=== PATIENT | male | born 1935 | race Caucasian/White ===

== ENCOUNTER 2017-04-17 07:11 | Inpatient (IN) | payer MEDICARE, OTHER ==
[~2017-04-17] VITALS: Ht 180.3 cm; Wt 89.2 kg
[2017-04-17] VITALS (12 sets, daily range): BP systolic 127–151; BP diastolic 83–93; PULSE 92–110; RESP 18–25; TEMP 98.3–98.7; O2SAT 96–99
[2017-04-17] MEDS ORDERED: METOPROLOL TARTRATE 5 MG/5 ML VIAL IV PUSH ONE (07:45)
[2017-04-17] MEDS ORDERED: FAMOTIDINE 20 MG/2 ML VIAL IV PUSH SCH (07:45)
[2017-04-17 07:55] LABS: BASOPHIL % 0.4 % (0.0-2.0); EOSINOPHIL % 0.3 % (0.0-4.0); HEMATOCRIT 38.7 % (39.0-51.0); HEMOGLOBIN 13.3 GM/DL (13.0-17.0); LYMPH % 10.6 % (9.0-44.0); LYMPHOCYTE # 1.2 TH/MM3 (1.0-4.8); MEAN CELL VOLUME 97.1 FL (80.0-100.0); MEAN CORPUSCULAR HEMOGLOBIN 33.3 PG (27.0-34.0); MEAN CORPUSCULAR HGB CONC 34.3 % (32.0-36.0); MEAN PLATELET VOLUME 9.3 FL (7.0-11.0); MONO % 2.6 % (0.0-8.0); MONOCYTE # 0.3 TH/MM3 (0-0.9); NEUT % 86.1 % (16.0-70.0); PLATELET COUNT 191 TH/MM3 (150-450); RED BLOOD COUNT 3.99 MIL/MM3 (4.50-5.90); RED CELL DISTRIBUTION WIDTH 11.9 % (11.6-17.2); WHITE BLOOD COUNT 11.6 TH/MM3 (4.0-11.0)
[2017-04-17] MEDS ORDERED: HEPARIN-D5W 25,000 U/250 ML 250 ML IV PRN (08:00)
[2017-04-17] MEDS ORDERED: HEPARIN SODIUM - IV 10,000 UNITS/10 ML VIAL IV PUSH ONE (08:00)
[2017-04-17] MEDS ORDERED: METF500T PO (08:02)
[2017-04-17] MEDS ORDERED: TRAZ100T10 PO (08:02)
[2017-04-17] MEDS ORDERED: PRAV40TA2 PO (08:02)
[2017-04-17] MEDS ORDERED: RANE1000 PO (08:02)
[2017-04-17] MEDS ORDERED: PRAS10TA PO (08:02)
[2017-04-17] MEDS ORDERED: VITA500T4 PO (08:02)
[2017-04-17] MEDS ORDERED: MAGN500T2 PO (08:02)
[2017-04-17] MEDS ORDERED: METO1TAB9 PO (08:02)
[2017-04-17] MEDS ORDERED: NITR1SUB3 SL (08:02)
[2017-04-17] MEDS ORDERED: PANT40TA3 PO (08:02)
[2017-04-17] MEDS ORDERED: ESOM1CAP16 PO (08:02)
[2017-04-17] MEDS ORDERED: IRON 65MG PO (08:02)
[2017-04-17] MEDS ORDERED: OLME1TAB13 PO (08:02)
[2017-04-17] MEDS ORDERED: ISOS30TA3 PO (08:02)
[2017-04-17] MEDS ORDERED: ZINC50TA2 PO (08:02)
[2017-04-17] MEDS ORDERED: ONGL5TAB PO (08:02)
[2017-04-17] MEDS ORDERED: GLIM4TAB PO (08:02)
[2017-04-17 08:03] LABS: ALBUMIN 4.1 GM/DL (3.4-5.0); DIRECT BILIRUBIN ADULT 0.1 MG/DL (0.0-0.2); INDIRECT BILIRUBIN 0.4 MG/DL (0.0-0.8); TOTAL BILIRUBIN ADULT 0.5 MG/DL (0.2-1.0); TOTAL PROTEIN 8.7 GM/DL (6.4-8.2)
[2017-04-17 08:10] LABS: BICARBONATE 19.9 MEQ/L (21.0-32.0); BLOOD UREA NITROGEN 21 MG/DL (7-18); CALCIUM 9.4 MG/DL (8.5-10.1); CHLORIDE 98 MEQ/L (98-107); CREATININE 1.61 MG/DL (0.60-1.30); GLOMERULAR FILTRATION RATE 41 ML/MIN (>89); GLUCOSE,RANDOM 258 MG/DL (74-106); SODIUM (NA) 130 MEQ/L (136-145); TROPONIN I 0.58 NG/ML (0.02-0.05)
--- NOTE | 2017-04-17 08:11 | RADRPT ---
EXAM DATE/TIME: 04/17/2017 07:30 [place] COMPARISON: No previous studies available for comparison. INDICATIONS : Chest pain. MEDICAL HISTORY : None. SURGICAL HISTORY : CABG. Cardiac stent. ENCOUNTER: Initial ACUITY: 1 day PAIN SCORE: 9/10 LOCATION: Bilateral chest FINDINGS: The heart is enlarged. The patient is post median sternotomy. There is diffuse interstitial prominenc e. There are minimal basilar effusions. The exam would suggest congestive failure. The osseous structures are intact. CONCLUSION: 1. Probable CHF. Elder Nobles MD on April 17, 2017 at 8:06 Board Certified Radiologist. This report was verified electronically.
[2017-04-17] MEDS ORDERED: NITROGLYCERIN 2% OINT 1 GM PACKET TOPICAL ONE (08:15)
--- NOTE | 2017-04-17 08:27 | PD ---
HPI Chief Complaint: Chest Pain Time Seen by Provider: 08:12 Travel History International Travel<30 days: No Contact w/Intl Traveler<30days: No Traveled to known affect area: No History of Present Illness HPI 81-year-old male came to the emergency room with history of left-sided chest pain that started 5 hours prior to arrival. Patient says that he gets this kind of pain on and off but this time it has lasted much longer than its usual. He has significant history of coronary artery disease. He had a bypass followed by 3 stents in past 5 years. He was also told by his unit support representative that there was one vessel that was blocked that could not be opened. Patient is on medications that he has been taking. They're from [place] and they' re here visiting. No history of nausea vomiting. Patient was tachycardic upon arrival. No aggravating or relieving factors identified. The patient was brought in by EMS. He looks uncomfortable. PFSH Past Medical History Narrative Medical List of his past medical, surgical, social and family history is reviewed from the nursing note. Hx Anticoagulant Therapy: Yes (EFFIANT) Anemia: Yes Cardiac Catheterization: Yes Cardiovascular Problems: Yes (CABG AND STENTS ) High Cholesterol: Yes Chest Pain: Yes Coronary Artery Disease: Yes Diabetes: Yes Patient Takes Glucophage: Yes GERD: Yes Hypertension: Yes Tetanus Vaccination: < 5 Years Influenza Vaccination: Yes ?: Not Past Surgical History Coronary Artery Bypass Graft: Yes Social History Alcohol Use: Yes (WEEKLY) Tobacco Use: Yes Substance Use: No Allergies-Medications (Allergen,Severity, Reaction): Coded Allergies: No Known Allergies (Unverified , 04/17/17) Comments No known drug allergies. Reported Meds & Prescriptions Reported Meds & Active Scripts Active Reported Nitroglycerin SL (Nitroglycerin) 0.4 Mg Subl 0.4 Mg SL DIRECTED PRN ONE TABLET UNDER THE TONGUE NEEDED FOR CHEST PAIN, MAY REPEAT EVERY FIVE MINUTES FOR A TOTAL OF 3 DOSES OR CALL 911 IF NO RELIEF Glimepiride 4 Mg Tab 4 Mg PO DAILY Take with breakfast or first main meal Effient (Prasugrel) 10 Mg Tab 10 Mg PO DAILY Ranexa ER 12 HR (Ranolazine) 1,000 Mg Tab 1,000 Mg PO BID Vitamin B-12 (Cyanocobalamin) 500 Mcg Tab 500 Mcg PO DAILY [Iron 65MG] 1 Tab PO DAILY Esomeprazole DR 40 Mg Capdr 40 Mg PO DAILY Pravastatin 40 Mg Tab 40 Mg PO DAILY Pantoprazole (Pantoprazole Sodium) 40 Mg Tab 40 Mg PO DAILY Olmesartan 40 Mg Tab 40 Mg PO DAILY Isosorbide Mononitrate ER (Isosorbide Mononitrate) 30 Mg Obie 30 Mg PO DAILY Metoprolol Succinate ER 24 HR (Metoprolol Succinate) 50 Mg Tab 50 Mg PO DAILY Metformin (Metformin HCl) 500 Mg Tab 500 Mg PO TIDPC Trazodone (Trazodone HCl) 100 Mg Tablet 100 Mg PO HS Onglyza (Saxagliptin) 5 Mg Tab 5 Mg PO DAILY Zinc Gluconate 50 Mg Tab 50 Mg PO DAILY Magnesium Oxide 500 Mg Tab 500 Mg PO DIRECTED Narrative Medication List of his home medications reviewed from the nursing note. Review of Systems Except as stated in HPI: all other systems reviewed are Neg Cardiovascular: Positive: Chest Pain or Discomfort Physical Exam Narrative GENERAL: Awake, alert, elderly, moderate distress SKIN: Focused skin assessment warm/dry. HEAD: Atraumatic. Normocephalic. EYES: Pupils equal and round. No scleral icterus. No injection or drainage. ENT: No nasal bleeding or discharge. Mucous membranes pink and moist. NECK: Trachea midline. No JVD. CARDIOVASCULAR: Regular rate and rhythm. No murmur appreciated. RESPIRATORY: No accessory muscle use. Clear to auscultation. Breath sounds equal bilaterally. GASTROINTESTINAL: Abdomen soft, non-tender, nondistended. Hepatic and splenic margins not palpable. MUSCULOSKELETAL: No obvious deformities. No clubbing. No cyanosis. No edema. NEUROLOGICAL: Awake and alert. No obvious cranial nerve deficits. Motor grossly within normal limits. Normal speech. PSYCHIATRIC: Appropriate mood and affect; insight and judgment normal. Data Data Last Documented VS Vital Signs Date Time Temp Pulse Resp B/P (MAP) Pulse Ox O2 Delivery O2 Flow Rate FiO2 04/17/17 08:03 92 18 151/89 (109) 98 Nasal Cannula 3.00 04/17/17 07:23 98.7 Orders Orders Electrocardiogram (04/17/17 07:13) Complete Blood Count With Diff (04/17/17 07:13) Basic Metabolic Panel (Bmp) (04/17/17 07:13) Ckmb (Isoenzyme) Profile (04/17/17 07:13) Troponin I (04/17/17 07:13) Chest, Single Ap (04/17/17 07:13) Iv Access Insert/Monitor (04/17/17 07:13) Ecg Monitoring (04/17/17 07:13) Oxygen Administration (04/17/17 07:13) Oximetry (04/17/17 07:13) Metoprolol Tartrate Inj (Lopressor Inj) (04/17/17 07:45) Famotidine Inj (Pepcid Inj) (04/17/17 07:45) Lipase (04/17/17 07:36) Hepatic Functional Panel (04/17/17 07:36) Heparin Inj (Heparin Inj) (04/17/17 08:00) Heparin Inj (Heparin Inj) (04/17/17 14:00) Heparin Inj (Heparin Inj) (04/17/17 14:00) Heparin-D5w 25,000 U/250 Ml (Heparin-D5w (04/17/17 08:00) Act Partial Throm Time (Ptt) (04/17/17 07:51) Prothrombin Time / Inr (Pt) (04/17/17 07:51) Cbc No Diff, Includes Plts (04/20/17 06:00) Act Partial Throm Time (Ptt) (04/17/17 14:51) Occult Blood (Hemoccult) Stool (04/17/17 07:51) Nitroglycerin 2% Oint (Nitroglycerin 2% (04/17/17 08:15) CKMB (04/17/17 07:30) CKMB% (04/17/17 07:30) Admit Order (Ed Use Only) (04/17/17 08:42) Labs Laboratory Tests Test 04/17/17 07:30 White Blood Count 11.6 TH/MM3 Red Blood Count 3.99 MIL/MM3 Hemoglobin 13.3 GM/DL Hematocrit 38.7 % Mean Corpuscular Volume 97.1 FL Mean Corpuscular Hemoglobin 33.3 PG Mean Corpuscular Hemoglobin Concent 34.3 % Red Cell Distribution Width 11.9 % Platelet Count 191 TH/MM3 Mean Platelet Volume 9.3 FL Neutrophils (%) (Auto) 86.1 % Lymphocytes (%) (Auto) 10.6 % Monocytes (%) (Auto) 2.6 % Eosinophils (%) (Auto) 0.3 % Basophils (%) (Auto) 0.4 % Neutrophils # (Auto) 10.0 TH/MM3 Lymphocytes # (Auto) 1.2 TH/MM3 Monocytes # (Auto) 0.3 TH/MM3 Eosinophils # (Auto) 0.0 TH/MM3 Basophils # (Auto) 0.0 TH/MM3 CBC Comment DIFF FINAL Differential Comment Prothrombin Time 11.4 SEC Prothromb Time International Ratio 1.1 RATIO Activated Partial Thromboplast Time 26.7 SEC Blood Urea Nitrogen 21 MG/DL Creatinine 1.61 MG/DL Random Glucose 258 MG/DL Calcium Level 9.4 MG/DL Sodium Level 130 MEQ/L Potassium Level 5.4 MEQ/L Chloride Level 98 MEQ/L Carbon Dioxide Level 19.9 MEQ/L Anion Gap 12 MEQ/L Estimat Glomerular Filtration Rate 41 ML/MIN Total Bilirubin 0.5 MG/DL Direct Bilirubin 0.1 MG/DL Indirect Bilirubin 0.4 MG/DL Aspartate Amino Transf (AST/SGOT) 25 U/L Alanine Aminotransferase (ALT/SGPT) 27 U/L Alkaline Phosphatase 132 U/L Total Creatine Kinase 140 U/L Creatine Kinase MB 6.6 NG/ML Troponin I 0.58 NG/ML Total Protein 8.7 GM/DL Albumin 4.1 GM/DL Lipase 115 U/L MDM Medical Decision Making Medical Screen Exam Complete: Yes Emergency Medical Condition: Yes Medical Record Reviewed: Yes Interpretation(s) 12-lead EKG was reviewed by me. Normal sinus rhythm, normal axis, tachycardia, left bundle branch block. Heart rate of 104 beats per minute Differential Diagnosis Non-STEMI, ACS Narrative Course 8:36 AM case was discussed with Dr. Montemayor after patient arrived because of his symptoms and the left bundle branch block. There is no old EKG to compare with the current EKG. As per him he wanted to wait for the labs and then be called back. The blood test results of back and patient's troponin is slightly elevated. He is BUN and creatinine is elevated as well. Meanwhile patient was started on medications including Nitropaste and heparin bolus and drip. Dr. Montemayor was called again and conveyed all the troponin value. He wanted the patient to be medically admitted and troponin every 2 hours. He would take him to the catheter lab at sometime this afternoon as per him. Awaiting for the admitting team to call back. Critical Care Narrative Aggregate critical care time was 30 minutes. Time to perform other separately billable procedures was not included in the critical care time. My time did not include minutes spent treating any other patients simultaneously or on activities that did not directly contribute to the patient's treatment. The services I provided to this patient were to treat and/or prevent clinically significant deterioration that could result in: Non-STEMI, heparin bolus and drip I provided critical care services requiring my management, as noted below: Chart data review, documentation time, medication orders and management, vital sign assessments/reviewing monitor data, ordering and reviewing lab tests, ordering and interpreting/reviewing x-rays and diagnostic studies, care of the patient and discussion of the patient with the admitting physicians. Procedures EKG Prior to Arrival: Yes Physician Communication Physician Communication Dr. Montemayor Diagnosis Primary Impression: Non-STEMI (non-ST elevated myocardial infarction) Admitting Information Admitting Physician Requests: Lise Doshi MD Apr 17, 2017 08:27
[2017-04-17 08:37] LABS: INTERNATIONAL NORMALIZED RATIO 1.1 RATIO; PROTHROMBIN TIME - PATIENT 11.4 SEC (9.8-11.6)
[2017-04-17] MEDS ORDERED: NALOXONE HCL 0.4 MG/ML AMP IV PUSH PRN (09:15)
[2017-04-17] MEDS ORDERED: SODIUM CHLORIDE 0.9% FLUSH 10 ML FLUSH IV FLUSH PRN ×2 (09:15→13:30)
[2017-04-17] MEDS ORDERED: HEPARIN-NS/PF FLUSH BAG 2,000 ML IV FLUSH ONE (12:17)
[2017-04-17] MEDS ORDERED: MIDAZOLAM HCL 2 MG/2 ML VIAL ONE (12:35)
[2017-04-17] MEDS ORDERED: HEPARIN SODIUM - IV 10,000 UNITS/10 ML VIAL ONE (12:51)
[2017-04-17] MEDS ORDERED: CLOPIDOGREL 300 MG TAB ONE (13:20)
[2017-04-17] MEDS ORDERED: TIROFIBAN INFUSION INJ 250 ML IV ONE (13:20)
[2017-04-17] MEDS ORDERED: PRASUGREL 10 MG TAB ONE (13:28)
[2017-04-17] MEDS ORDERED: TIROFIBAN INFUSION INJ 250 ML IV SCH (13:28)
[2017-04-17] MEDS ORDERED: MISC INFORMATION XX ONE (13:30)
[2017-04-17] MEDS ORDERED: PRASUGREL 10 MG TAB PO ONE (13:30)
[2017-04-17] MEDS ORDERED: HEPARIN SODIUM - IV 10,000 UNITS/10 ML VIAL IV PUSH PRN ×2 (14:00)
[2017-04-17] MEDS ORDERED: DILTIAZEM HCL 25 MG/5 ML VIAL ONE (14:40)
[2017-04-17] MEDS ORDERED: DILTIAZEM HCL 25 MG/5 ML (Bolus) IV PUSH PRN (14:45)
[2017-04-17] MEDS: DILTIAZEM 125 MG/NS 100 ML IV PRN ×2 (15:00)
[2017-04-17] MEDS ORDERED: IOHEXOL 350 MG/ML 100 ML BTL (for Cath Lab) OTHER ONE (15:12)
[2017-04-17] MEDS ORDERED: DEXTROSE 50% IN WATER 50 ML VIAL(D50) IV PUSH PRN (16:45)
[2017-04-17] MEDS ORDERED: GLUCAGON 1 MG/ML VIAL OTHER PRN (16:45)
--- NOTE | 2017-04-17 16:46 | HHI.HP ---
HPI Service [facility] Primary Care Physician Non-Staff Admission Diagnosis NSTEMI Diagnoses: Travel History International Travel<30 Days: No Contact w/Intl Traveler <30 Da: No Traveled to Known Affected Are: No History of Present Illness History the patient, ER physician communication, interview of medical records. Patient reported that last night, all through the night, he was having chest pain. Midsternal. No radiation. Denies any association to me. However patient does looks to be a little bit short of breath at the time of my exam. He states that he is not short of breath and that he was just trying to get sympathy. He reports that there was some pain to his left shoulder as well although he's not sure whether this is necessarily radiation. Denies any recent bleeding. Next and denies fevers/sinus symptoms. Denies any nausea or vomiting or diarrhea. Patient states because of these chest pains, he took a total of 3 nitroglycerin throughout the night. By 6 AM when he woke up, since the pain was not going away, he called 911 to come. He reports he has history of CAD with prior CABG and stenting. He was told by his multiskill operator that he has some areas that were not amenable due to the anatomy being too close to the heart. He reports he has had a few months history of ongoing angina which usually is relieved by nitroglycerin. Only last night, it was not relieving. In the emergency room, patient's EKGs revealed LBBB. There was no prior EKGs to review since [place] Patient reports [place] traveled here [place] by [place] around and of January. No recent prolonged travels since then. Patient was then taken to cardiac catheter by Dr. Montemayor multiskill operator. Per patient and from the chart, patient had 1 stent placed. Currently, patient is on Cardizem drip and tirofiban drip. Blood pressure is 130s over 70s. Review of Systems Except as stated in HPI: all other systems reviewed are Neg Past Family Social History Past Medical History Hypertension Diabetes Hyperlipidemia CADstatus post cardiac stents and CABG PAD GERD Past Surgical History CABG Cataract surgery Coronary angiogram and stenting Allergies: Coded Allergies: No Known Allergies (Unverified , 04/17/17) Family History He was an orphan However his biological son has significant cardiac defects at . Bundle- branch block, some wall motion abnormalities, valvular defects according to the . Social History Smokes pipes. Drinks alcohol only socially. Denies any drug abuse. Physical Exam Vital Signs Vital Signs Date Time Temp Pulse Resp B/P (MAP) Pulse Ox O2 Delivery O2 Flow Rate FiO2 04/17/17 15:00 110 146/77 04/17/17 13:51 91 Room Air 04/17/17 11:59 04/17/17 11:45 110 18 150/93 (112) 98 Nasal Cannula 3.00 04/17/17 11:00 108 18 149/86 (107) 98 Nasal Cannula 3.00 04/17/17 08:03 92 18 151/89 (109) 98 Nasal Cannula 3.00 04/17/17 07:23 96 Room Air 04/17/17 07:23 98.7 104 25 144/89 (107) 96 Nasal Cannula 2.00 04/17/17 07:23 96 Room Air 04/17/17 07:23 105 25 96 Room Air 04/17/17 07:17 98.7 105 25 144/89 (107) 96 Physical Exam GENERAL: This is a well-nourished, well-developed patient, in no apparent distress. SKIN: No rashes, ecchymoses or lesions. Cool and dry. HEAD: Atraumatic. Normocephalic. No temporal or scalp tenderness. EYES:No scleral icterus. No injection or drainage. ENT: Nose without bleeding, purulent drainage or septal hematoma. . Airway patent. NECK: Trachea midline. No JVD. Supple, nontender, no meningeal signs. CARDIOVASCULAR: Regular rate and rhythm without murmurs, gallops, or rubs. RESPIRATORY: Clear to auscultation. Breath sounds equal bilaterally. No wheezes , rales, or rhonchi. GASTROINTESTINAL: Abdomen soft, non-tender, nondistended. No guarding : right groin cath site clean, no hematoma, MUSCULOSKELETAL: Extremities without clubbing, cyanosis, or edema. . No calf tenderness. Faint dorsalis pedis pulses , cold temp bilateral feet- reports chronic NEUROLOGICAL: Awake and alert. Motor and sensory grossly within normal limits. Normal speech. Laboratory Laboratory Tests Test 04/17/17 07:30 White Blood Count 11.6 Red Blood Count 3.99 Hemoglobin 13.3 Hematocrit 38.7 Mean Corpuscular Volume 97.1 Mean Corpuscular Hemoglobin 33.3 Mean Corpuscular Hemoglobin Concent 34.3 Red Cell Distribution Width 11.9 Platelet Count 191 Mean Platelet Volume 9.3 Neutrophils (%) (Auto) 86.1 Lymphocytes (%) (Auto) 10.6 Monocytes (%) (Auto) 2.6 Eosinophils (%) (Auto) 0.3 Basophils (%) (Auto) 0.4 Neutrophils # (Auto) 10.0 Lymphocytes # (Auto) 1.2 Monocytes # (Auto) 0.3 Eosinophils # (Auto) 0.0 Basophils # (Auto) 0.0 CBC Comment DIFF FINAL Differential Comment Prothrombin Time 11.4 Prothromb Time International Ratio 1.1 Activated Partial Thromboplast Time 26.7 Blood Urea Nitrogen 21 Creatinine 1.61 Random Glucose 258 Calcium Level 9.4 Sodium Level 130 Potassium Level 5.4 Chloride Level 98 Carbon Dioxide Level 19.9 Anion Gap 12 Estimat Glomerular Filtration Rate 41 Total Bilirubin 0.5 Direct Bilirubin 0.1 Indirect Bilirubin 0.4 Aspartate Amino Transf (AST/SGOT) 25 Alanine Aminotransferase (ALT/SGPT) 27 Alkaline Phosphatase 132 Total Creatine Kinase 140 Creatine Kinase MB 6.6 Troponin I 0.58 B-Type Natriuretic Peptide 405 Total Protein 8.7 Albumin 4.1 Lipase 115 Result Diagram: 04/17/1772904/17/17729 Imaging Last 48 hours Impressions Chest X-Ray 04/17/17712 Signed Impressions: Service Date/Time: March 07:30 - CONCLUSION: 1. Probable CHF. Elder Nobles MD Caprini VTE Risk Assessment Caprini VTE Risk Assessment: Mod/High Risk (score >= 2) Caprini Risk Assessment Model Point Value = 1 Point Value = 2 Point Value = 3 Point Value = 5 Age 41-60 Minor surgery BMI > 25 kg/m2 Swollen legs Varicose veins or History of unexplained or recurrent spontaneous Oral contraceptives or hormone replacement Sepsis (< 1 month) Serious lung disease, including pneumonia (< 1 month) Abnormal pulmonary function Acute myocardial infarction Congestive heart failure (< 1 month) History of inflammatory bowel disease Medical patient at bed rest Age 61-74 Arthroscopic surgery Major open surgery (> 45 min) Laparoscopic surgery (> 45 min) Malignancy Confined to bed (> 72 hours) Immobilizing plaster cast Central venous access Age >= 75 History of VTE Family history of VTE Factor V Leiden Prothrombin [id number] Lupus anticoagulant Anticardiolipin antibodies Elevated serum homocysteine Heparin-induced thrombocytopenia Other congenital or acquired thrombophilia Stroke (< 1 month) Elective arthroplasty Hip, pelvis, or leg fracture Acute spinal cord injury (< 1 month) Prophylaxis Regimen Total Risk Factor Score Risk Level Prophylaxis Regimen 0-1 Low Early ambulation 2 Moderate Order ONE of the following: *Sequential Compression Device (SCD) *Heparin 5000 units SQ BID 3-4 Higher Order ONE of the following medications: *Heparin 5000 units SQ TID *Enoxaparin/Lovenox 40 mg SQ daily (WT < 150 kg, CrCl > 30 mL/min) *Enoxaparin/Lovenox 30 mg SQ daily (WT < 150 kg, CrCl > 10-29 mL/min) *Enoxaparin/Lovenox 30 mg SQ BID (WT < 150 kg, CrCl > 30 mL/min) AND/OR *Sequential Compression Device (SCD) 5 or more Highest Order ONE of the following medications: *Heparin 5000 units SQ TID (Preferred with Epidurals) *Enoxaparin/Lovenox 40 mg SQ daily (WT < 150 kg, CrCl > 30 mL/min) *Enoxaparin/Lovenox 30 mg SQ daily (WT < 150 kg, CrCl > 10-29 mL/min) *Enoxaparin/Lovenox 30 mg SQ BID (WT < 150 kg, CrCl > 30 mL/min) AND *Sequential Compression Device (SCD) Assessment and Plan Assessment and Plan Impression: Non-ST elevation RI Hypertension Diabetes Hyperlipidemia CADstatus post cardiac stents and CABG PAD GERD Plan: Patient was started on heparin drip in ER. Nitroglycerin when necessary. Patient was immediately taken to coronary angiogram by multiskill operator Dr. Montemayor. He did have coronary intervention with one stent. Official report to follow. Continue Cardizem drip. Continue antiplatelet therapy per multiskill operator. Start patient on diet. Fingersticks monitoring Hold metformin. Resume rest of his home meds. Beta blockers/statin/effient/ nitrates Echocardiogram in a.m. Chest x-ray showing some pulmonary congestion. However patient denies any prior history of CHF. BNP is slightly elevated. We'll follow echo. Watch for fluid overload. DVT prophylaxis with Lovenox. Discussed Condition With patient, ER Physician Certification 2 Midnight Certification Type: Admission for Inpatient Services Order for Inpatient Services The services are ordered in accordance with Medicare regulations or non- Medicare payer requirements, as applicable. In the case of services not specified as inpatient-only, they are appropriately provided as inpatient services in accordance with the 2-midnight benchmark. Estimated LOS (days): 2 days is the estimated time the patient will need to remain in the hospital, assuming treatment plan goals are met and no additional complications. Post-Hospital Plan: Home Brittney Davis MD Apr 17, 2017 16:46
[2017-04-17] MEDS ORDERED: PILL SPLITTER OTHER PRN (17:15)
[2017-04-17] MEDS: INSULIN ASPART SUPPLEMENTAL SCALE SQ SCH ×2 (17:59→21:11)
--- NOTE | 2017-04-17 19:08 | ECHRPT ---
Indication: Heart failure, unspecified CONCLUSIONS The transthoracic study is normal by two-dimensional, color flow imaging and Doppler interrogation. The left ventricular systolic function is severely reduced with an estimated ejection fraction in th e range of 30-35%. Wall thickness is normal. Normal left ventricular size. The left atrial size is [id number] dilated. The aortic root and proximal ascending aorta are not well visualized. Mild mitral valve regurgitation. Calcification of the anterior mitral valve leaflet. BP: / HR: Rhythm: MEASUREMENTS (Male / Female) Normal Values Technical Quality:Fair 2D ECHO LV Diastolic Diameter PLAX 5.9 cm 4.2 - 5.9 / 3.9 - 5.3 cm LV Systolic Diameter PLAX 5.1 cm IVS Diastolic Thickness 0.9 cm 0.6 - 1.0 / 0.6 - 0.9 cm LVPW Diastolic Thickness 1.2 cm 0.6 - 1.0 / 0.6 - 0.9 cm LV Relative Wall Thickness 0.3 RV Internal Dim ED PLAX 2.3 cm M-MODE Aortic Root Diameter MM 3.0 cm LA Systolic Diameter MM 5.8 cm LA Ao Ratio MM 1.9 AV Cusp Separation MM 1.2 cm DOPPLER MV Peak Velocity 116.0 cm/s MV Peak Gradient 5.4 mmHg MV Mean Velocity 81.4 cm/s MV Mean Gradient 3.0 mmHg Mitral E Point Velocity 111.0 cm/s Mitral A Point Velocity 123.0 cm/s Mitral E to A Ratio 0.9 FINDINGS LEFT VENTRICLE The left ventricular systolic function is severely reduced with an estimated ejection fraction in th e range of 30-35%. Wall thickness is normal. Normal left ventricular size. RIGHT VENTRICLE Normal right ventricular size and systolic function. LEFT ATRIUM The left atrial size is [id number] dilated. RIGHT ATRIUM The right atrial size is normal. ATRIAL SEPTUM Normal atrial septal thickness without atrial level shunting by limited color doppler interrogation. AORTA The aortic root and proximal ascending aorta are not well visualized. MITRAL VALVE Structurally normal mitral valve. Mild mitral valve regurgitation. Calcification of the anterior mitral valve leaflet. AORTIC VALVE Trileaflet aortic valve. No aortic valve stenosis or regurgitation. TRICUSPID VALVE Structurally normal tricuspid valve. No tricuspid valve stenosis or regurgitation. PULMONARY VALVE No pulmonary valve regurgitation or stenosis. VESSELS The inferior vena cava is normal in size. PERICARDIUM No pericardial effusion. Miguel Montemayor MD, FACC, [facility] [place] (Electronically Signed) Final Date:17 April 2017 19:07
--- NOTE | 2017-04-17 19:40 | EKG ---
Date Performed: 04/17/2017 Time Performed: 07:21:37 PTAGE: 81 years EKG: SINUS TACHYCARDIA MARKED LEFT AXIS DEVIATION LEFT BUNDLE BRANCH BLOCK ABNORMAL ECG NO PREVIOUS TRACING DOCTOR: Tammi Henson Interpretating Date/Time 04/17/2017 19:38:48
[2017-04-17] MEDS ORDERED: ONDANSETRON HCL 4 MG/2 ML VIAL IV PUSH PRN (19:45)
[2017-04-17] MEDS: SODIUM CHLORIDE 0.9% FLUSH 10 ML FLUSH IV FLUSH SCH (21:00)
[2017-04-17] MEDS ORDERED: RANOLAZINE 1000 MG PO SCH (21:00)
[2017-04-17] MEDS ORDERED: SODIUM CHLORIDE 0.9% FLUSH 10 ML FLUSH IV FLUSH SCH (21:00)
[2017-04-17] MEDS ORDERED: ATORVASTATIN 10 MG TAB PO SCH (21:00)
[2017-04-17] MEDS ORDERED: NON-FORMULARY DRUG (Trazodone 100 MG) PO SCH (21:00)
[2017-04-17] MEDS ORDERED: traZODone HCL 100 MG TAB PO SCH (21:00)
[2017-04-17] MEDS: RANOLAZINE 500 MG EXTENDED RELEASE TAB PO SCH (21:10)
[2017-04-17] MEDS: CARVEDILOL 3.125 MG TAB PO SCH (21:11)
--- NOTE | 2017-04-17 21:34 | MB ---
cc: ALMA KELLER M.D. DATE OF CONSULTATION 04/17/17 Hossein is a very pleasant 81-year-old gentleman, history of coronary artery bypass graft procedure in 1997. He visiting here from [place]. He began developing left-sided chest pain five hours prior to arrival. At the time I evaluated him he was complaining of severe chest pain. He states he was told by the [employer] consultant that he had a vessel that "could not be opened". Otherwise, he denies any fevers, chills, cough, GI or bleeding, orthopnea, syncope or dizziness. PAST MEDICAL HISTORY Per history of present illness. 1. Anemia, 2. Hyperlipidemia, 3. Diabetes. 4. Gastroesophageal reflux disease 5. Hypertension. SOCIAL HISTORY He drinks alcohol. He does smoke tobacco. ALLERGIES None. MEDICATIONS Prior to admission 1. 2. Effient 10 mg daily 3. Ranexa 1000 b.i.d. 4. Vitamin B12 5. Omeprazole 6. Pravastatin 40 daily. 7. Pantoprazole 40 daily, 8. Omasartin 40 mg daily. 9. Isosorbide mononitrate 30 mg daily. 10. Metoprolol extended release 50 mg daily. 11. Metformin 500 t.i.d. 12. Trazodone 13. Zinc gluconate 14. Magnesium oxide 15. 5 mg daily In hospital 1. Aspirin 81 mg a day. 2. Imdur 30 mg daily, 3. Metoprolol XL 50 daily. 4. Pantoprazole 40 daily. 5. Losartan 50 mg daily 6. Onglyza 7. Carvedilol 3.25 b.i.d. 8. Atorvastatin 10 mg at bedtime 9. Ranexa 1000 mg b.i.d. 10. Trazodone 100 mg at bedtime. PHYSICAL EXAMINATION VITAL SIGNS: Blood pressure on admission 144/89, pulse 105, temperature 98.7, respiratory rate 25. GENERAL: He is alert and oriented times three in mild to moderate distress NECK: Supple. No JVD, no bruit CARDIOVASCULAR: S1, S2. No murmurs, rubs or gallops. LUNGS: Clear to auscultation bilaterally ABDOMEN: Soft, nontender, nondistended with positive bowel sounds. EXTREMITIES: No lower extremity edema. LABORATORY DATA White count 11.6, hemoglobin 13.3, hematocrit 39.7, platelet count 191. Sodium 130, potassium 5.4, chloride 98, bicarb 19.9, BUN 21 creatinine 1.61, glucose 258, troponin is 0.58. BNP is 405, INR 1.1. CARDIOLOGY STUDIES EKG - I cannot get to it on the computer, but it is reported to show a left bundle-branch block by the ER physician, Dr. Pineda and Dr. Mendoza. IMAGING STUDIES Chest x-ray shows probable CHF. DIAGNOSES 1. Non STEMI 2. Decompensated congestive heart failure 3. Left bundle-branch block 4. Diabetes mellitus. 5. Coronary artery disease. 6. Status post coronary artery bypass graft 7. Chronic renal insufficiency. 8. Hyperglycemia 9. Hyponatremia. 10. Hyperkalemia 11. Elevated white count. DISCUSSION At this point in time, I do think left heart catheterization is urgently indicated. Plan is for urgent left heart catheterization. Further recommendations pending results of the coronary anatomy and revascularization options. MD JASON Hollingsworth/ /5:21 PM /9:04 PM
[2017-04-17 21:47] LABS: TROPONIN I 36.7 NG/ML (0.02-0.05)
[2017-04-18] VITALS (15 sets, daily range): BP systolic 93–120; BP diastolic 60–75; PULSE 77–96; RESP 19–20; TEMP 97.5–98.2; O2SAT 96–97
[2017-04-18 03:38] LABS: AUTOMATED NEUTROPHIL # 10.6 TH/MM3 (1.8-7.7); BASOPHIL % 0.3 % (0.0-2.0); HEMATOCRIT 36.6 % (39.0-51.0); HEMOGLOBIN 12.3 GM/DL (13.0-17.0); LYMPH % 8.7 % (9.0-44.0); LYMPHOCYTE # 1.1 TH/MM3 (1.0-4.8); MEAN CELL VOLUME 98.1 FL (80.0-100.0); MEAN CORPUSCULAR HEMOGLOBIN 32.9 PG (27.0-34.0); MEAN CORPUSCULAR HGB CONC 33.5 % (32.0-36.0); MEAN PLATELET VOLUME 9.3 FL (7.0-11.0); MONO % 8.8 % (0.0-8.0); MONOCYTE # 1.1 TH/MM3 (0-0.9); NEUT % 82.2 % (16.0-70.0); PLATELET COUNT 199 TH/MM3 (150-450); RED BLOOD COUNT 3.73 MIL/MM3 (4.50-5.90); RED CELL DISTRIBUTION WIDTH 12.1 % (11.6-17.2); WHITE BLOOD COUNT 12.9 TH/MM3 (4.0-11.0)
[2017-04-18 03:48] LABS: BICARBONATE 18.6 MEQ/L (21.0-32.0); BLOOD UREA NITROGEN 25 MG/DL (7-18); CALCIUM 8.8 MG/DL (8.5-10.1); CHLORIDE 102 MEQ/L (98-107); CHOLESTEROL 159 MG/DL (120-200); CREATININE 1.57 MG/DL (0.60-1.30); GLOMERULAR FILTRATION RATE 43 ML/MIN (>89); GLUCOSE,RANDOM 214 MG/DL (74-106); SODIUM (NA) 133 MEQ/L (136-145); TRIGLYCERIDES 116 MG/DL (42-150)
[2017-04-18 04:01] LABS: CHOLESTEROL/ HDL RATIO 2.74 RATIO; LDL CHOLESTEROL 78 MG/DL (0-99)
[2017-04-18 05:05] LABS: TROPONIN I GREATER THAN 40.00 NG/ML (0.02-0.05)
[2017-04-18] MEDS: DILTIAZEM 125 MG/NS 100 ML IV PRN ×2 (07:28)
[2017-04-18] MEDS ORDERED: PRASUGREL 10 MG TAB PO SCH (09:00)
[2017-04-18] MEDS ORDERED: PANTOPRAZOLE SOD 40 MG DELAYED RELEASE TAB PO SCH (09:00)
[2017-04-18] MEDS ORDERED: PRAVASTATIN SOD 40 MG TAB PO SCH (09:00)
[2017-04-18] MEDS ORDERED: OLMESARTAN 40 MG PO SCH (09:00)
[2017-04-18] MEDS ORDERED: SAXAGLIPTIN 5 MG PO SCH ×2 (09:00)
[2017-04-18] MEDS ORDERED: LOSARTAN 50 MG TAB PO SCH (09:00)
[2017-04-18] MEDS ORDERED: CYANOCOBALAMIN 1,000 MCG TAB PO SCH (09:00)
[2017-04-18] MEDS ORDERED: METOPROLOL SUCCINATE 50 MG EXTENDED RELEASE TAB PO SCH (09:00)
[2017-04-18] MEDS ORDERED: ASPIRIN 81 MG CHEW TAB PO SCH (09:00)
[2017-04-18] MEDS ORDERED: ISOSORBIDE MONONITRATE 30 MG CR TAB (IMDUR) PO SCH (09:00)
[2017-04-18] MEDS ORDERED: GLIMEPIRIDE 4 MG TAB PO SCH (09:00)
[2017-04-18] MEDS: INSULIN ASPART SUPPLEMENTAL SCALE SQ SCH ×2 (09:24→12:49)
[2017-04-18] MEDS: CARVEDILOL 3.125 MG TAB PO SCH (09:24)
[2017-04-18] MEDS: SODIUM CHLORIDE 0.9% FLUSH 10 ML FLUSH IV FLUSH SCH (09:26)
[2017-04-18] MEDS: RANOLAZINE 500 MG EXTENDED RELEASE TAB PO SCH (11:39)
--- NOTE | 2017-04-18 12:01 | PD.CARD.PN ---
Subjective Subjective Remarks assymptomatic Objective Medications Current Medications Medications (Trade) Dose Ordered Sig/Yamilet Route Start Time Stop Time Status Last Admin (Pepcid Inj) 20 mg ONCE IV PUSH 04/17/17 07:45 04/17/17 07:44 (Narcan Inj) 0.4 mg UNSCH PRN IV PUSH 04/17/17 09:15 (NS Flush) 2 ml UNSCH PRN IV FLUSH 04/17/17 13:30 (NS Flush) 2 ml BID IV FLUSH 04/17/17 21:00 04/18/17 09:26 (Aspirin Chew) 162 mg DAILY PO 04/18/17 09:00 04/18/17 09:25 (Effient) 10 mg DAILY PO 04/18/17 09:00 04/18/17 09:24 (Coreg) 3.125 mg BID PO 04/17/17 21:00 04/18/17 09:24 (Lipitor) 10 mg HS PO 04/17/17 21:00 04/17/17 21:11 (Cardizem Inj) 10 mg BOLUS PRN IV PUSH 04/17/17 14:45 04/18/17 14:44 04/17/17 14:32 Diltiazem HCl 125 mg/Sodium Chloride 125 ml @ 5 mls/hr TITRATE PRN IV 04/17/17 14:45 04/18/17 07:28 (D50w (Vial) Inj) 50 ml UNSCH PRN IV PUSH 04/17/17 16:45 (Glucagon Inj) 1 mg UNSCH PRN OTHER 04/17/17 16:45 (NovoLOG SUPPLEMENTAL SCALE) 1 ACHS SLIDING SCALE SQ 04/17/17 17:00 04/18/17 09:24 (Vitamin B12) 500 mcg DAILY PO 04/18/17 09:00 04/18/17 09:25 (Amaryl) 4 mg DAILY PO 04/18/17 09:00 04/18/17 09:24 (Imdur) 30 mg DAILY PO 04/18/17 09:00 04/18/17 09:25 (Toprol Xl) 50 mg DAILY PO 04/18/17 09:00 04/18/17 09:25 (Protonix) 40 mg DAILY PO 04/18/17 09:00 04/18/17 09:24 (Pill Splitter) 1 ea UNSCH PRN OTHER 04/17/17 17:15 (Ranexa) 1,000 mg BID PO 04/17/17 21:00 04/18/17 11:39 (Desyrel) 100 mg HS PO 04/17/17 21:00 04/17/17 21:10 (Cozaar) 50 mg DAILY PO 04/18/17 09:00 04/18/17 09:25 Patient Own Medication PT OWN MED: ONGLYZ... DAILY PO 04/18/17 09:00 Future Hold (Zofran Inj) 4 mg Q6H PRN IV PUSH 04/17/17 19:45 Vital Signs / I&O Vital Signs Date Time Temp Pulse Resp B/P (MAP) Pulse Ox O2 Delivery O2 Flow Rate FiO2 04/18/17 11:42 98.2 77 19 93/60 (71) 96 04/18/17 10:00 92 04/18/17 09:00 88 04/18/17 08:00 82 04/18/17 07:30 98.0 87 20 120/75 (90) 96 04/18/17 07:28 87 120/75 04/18/17 07:00 82 04/18/17 06:06 89 04/18/17 05:00 94 04/18/17 04:00 79 04/18/17 03:00 97.6 83 95/63 (74) 97 04/18/17 03:00 87 04/18/17 01:22 85 04/18/17 00:03 97.5 96 114/70 (85) 96 04/18/17 00:00 88 04/17/17 23:00 104 04/17/17 22:00 104 04/17/17 21:00 102 04/17/17 20:00 102 04/17/17 19:00 98.3 104 127/83 (98) 99 04/17/17 19:00 103 04/17/17 18:00 104 04/17/17 17:00 108 04/17/17 15:00 110 146/77 04/17/17 13:51 91 Room Air 04/17/17 11:59 I/O 04/17/17 04/17/17 04/17/17 04/18/17 04/18/17 04/18/17 07:00 15:00 23:00 07:00 15:00 23:00 Intake Total 240 ml 240 ml 123 ml Output Total 200 ml 225 ml Balance 40 ml 15 ml 123 ml Intake Oral 240 ml 240 ml IV Total 123 ml Output Urine Total 200 ml 225 ml Physical Exam GENERAL: SKIN: Warm and dry. HEAD: Normocephalic. EYES: No scleral icterus. No injection or drainage. NECK: Supple, trachea midline. No JVD or lymphadenopathy. CARDIOVASCULAR: Regular rate and rhythm without murmurs, gallops, or rubs. RESPIRATORY: Breath sounds equal bilaterally. No accessory muscle use. GASTROINTESTINAL: Abdomen soft, non-tender, nondistended. MUSCULOSKELETAL: No cyanosis, or edema. BACK: Nontender without obvious deformity. No CVA tenderness. Laboratory Laboratory Tests Test 04/17/17 20:47 04/18/17 03:01 Activated Partial Thromboplast Time 25.2 SEC Total Creatine Kinase 1199 U/L 1365 U/L Creatine Kinase MB 155.1 NG/ML 162.4 NG/ML Creatine Kinase MB % 12.9 % 11.9 % Troponin I 36.70 NG/ML GREATER THAN 40.00 NG/ML White Blood Count 12.9 TH/MM3 Red Blood Count 3.73 MIL/MM3 Hemoglobin 12.3 GM/DL Hematocrit 36.6 % Mean Corpuscular Volume 98.1 FL Mean Corpuscular Hemoglobin 32.9 PG Mean Corpuscular Hemoglobin Concent 33.5 % Red Cell Distribution Width 12.1 % Platelet Count 199 TH/MM3 Mean Platelet Volume 9.3 FL Neutrophils (%) (Auto) 82.2 % Lymphocytes (%) (Auto) 8.7 % Monocytes (%) (Auto) 8.8 % Eosinophils (%) (Auto) 0.0 % Basophils (%) (Auto) 0.3 % Neutrophils # (Auto) 10.6 TH/MM3 Lymphocytes # (Auto) 1.1 TH/MM3 Monocytes # (Auto) 1.1 TH/MM3 Eosinophils # (Auto) 0.0 TH/MM3 Basophils # (Auto) 0.0 TH/MM3 CBC Comment DIFF FINAL Differential Comment Blood Urea Nitrogen 25 MG/DL Creatinine 1.57 MG/DL Random Glucose 214 MG/DL Calcium Level 8.8 MG/DL Sodium Level 133 MEQ/L Potassium Level 4.8 MEQ/L Chloride Level 102 MEQ/L Carbon Dioxide Level 18.6 MEQ/L Anion Gap 12 MEQ/L Estimat Glomerular Filtration Rate 43 ML/MIN Triglycerides Level 116 MG/DL Cholesterol Level 159 MG/DL LDL Cholesterol 78 MG/DL HDL Cholesterol 58.0 MG/DL Cholesterol/HDL Ratio 2.74 RATIO Assessment and Plan Problem List: (1) SVT (supraventricular tachycardia) ICD Codes: I47.1 - Supraventricular tachycardia (2) CAD (coronary artery disease) ICD Codes: I25.10 - Atherosclerotic heart disease of [place] coronary artery without angina pectoris (3) Non-STEMI (non-ST elevated myocardial infarction) ICD Codes: I21.4 - Non-ST elevation (NSTEMI) myocardial infarction Status: Acute Assessment and Plan 1.) NSTEMI - pod#1 bms lm, assymptomatic, ok to dc from cv standpoint on aspirin , effient, coreg, f/u with me in my office 04/21/17, patient instructed me to not take metformin/glucophage x 48 hours post cath; plan d/w nurse Miguel Montemayor MD Apr 18, 2017 12:01
[2017-04-18] MEDS ORDERED: ASPI81 PO (12:19)
[2017-04-18] MEDS ORDERED: CARV3.125 PO (12:19)
[2017-04-18] MEDS ORDERED: LORazepam 0.5 MG TAB PO PRN (13:00)
--- NOTE | 2017-04-18 14:07 | HHI.DS ---
Discharge Summary Admission Date Apr 17, 2017 at 08:44 Discharge Date: Apr 18, 2017 Admitting Diagnosis NSTEMI (1) NSTEMI (non-ST elevated myocardial infarction) ICD Code: I21.4 - Non-ST elevation (NSTEMI) myocardial infarction Diagnosis: Principal (2) SVT (supraventricular tachycardia) ICD Code: I47.1 - Supraventricular tachycardia Diagnosis: Principal (3) CAD (coronary artery disease) ICD Code: I25.10 - Atherosclerotic heart disease of [place] coronary artery without angina pectoris Diagnosis: Principal Procedures None Brief History - From Admission History the patient, ER physician communication, interview of medical records. Patient reported that last night, all through the night, he was having chest pain. Midsternal. No radiation. Denies any association to me. However patient does looks to be a little bit short of breath at the time of my exam. He states that he is not short of breath and that he was just trying to get sympathy. He reports that there was some pain to his left shoulder as well although he's not sure whether this is necessarily radiation. Denies any recent bleeding. Next and denies fevers/sinus symptoms. Denies any nausea or vomiting or diarrhea. Patient states because of these chest pains, he took a total of 3 nitroglycerin throughout the night. By 6 AM when he woke up, since the pain was not going away, he called 911 to come. He reports he has history of CAD with prior CABG and stenting. He was told by his automotive title clerk that he has some areas that were not amenable due to the anatomy being too close to the heart. He reports he has had a few months history of ongoing angina which usually is relieved by nitroglycerin. Only last night, it was not relieving. In the emergency room, patient's EKGs revealed LBBB. There was no prior EKGs to review since patient is here from [place]. Patient reports she traveled here from [place] by car around and of January. No recent prolonged travels since then. Patient was then taken to cardiac catheter by Dr. Montemayor automotive title clerk. Per patient and from the chart, patient had 1 stent placed. Currently, patient is on Cardizem drip and tirofiban drip. Blood pressure is 130s over 70s. CBC/BMP: 04/18/17 0301 04/18/17 0301 Significant Findings Laboratory Tests Test 04/17/17 07:30 04/17/17 20:47 04/18/17 03:01 04/18/17 12:10 White Blood Count 11.6 TH/MM3 (4.0-11.0) 12.9 TH/MM3 (4.0-11.0) Red Blood Count 3.99 MIL/MM3 (4.50-5.90) 3.73 MIL/MM3 (4.50-5.90) Hematocrit 38.7 % (39.0-51.0) 36.6 % (39.0-51.0) Neutrophils (%) (Auto) 86.1 % (16.0-70.0) 82.2 % (16.0-70.0) Neutrophils # (Auto) 10.0 TH/MM3 (1.8-7.7) 10.6 TH/MM3 (1.8-7.7) Blood Urea Nitrogen 21 MG/DL (7-18) 25 MG/DL (7-18) Creatinine 1.61 MG/DL (0.60-1.30) 1.57 MG/DL (0.60-1.30) Random Glucose 258 MG/DL (74-106) 214 MG/DL (74-106) Sodium Level 130 MEQ/L (136-145) 133 MEQ/L (136-145) Potassium Level 5.4 MEQ/L (3.5-5.1) Carbon Dioxide Level 19.9 MEQ/L (21.0-32.0) 18.6 MEQ/L (21.0-32.0) Estimat Glomerular Filtration Rate 41 ML/MIN (>89) 43 ML/MIN (>89) Alkaline Phosphatase 132 U/L (45-117) Creatine Kinase MB 6.6 NG/ML (0.5-3.6) 155.1 NG/ML (0.5-3.6) 162.4 NG/ML (0.5-3.6) 94.3 NG/ML (0.5-3.6) Troponin I 0.58 NG/ML (0.02-0.05) 36.70 NG/ML (0.02-0.05) GREATER THAN 40.00 NG/ML B-Type Natriuretic Peptide 405 PG/ML (0-100) Total Protein 8.7 GM/DL (6.4-8.2) Total Creatine Kinase 1199 U/L (39-308) 1365 U/L (39-308) 904 U/L (39-308) Creatine Kinase MB % 12.9 % (0.0-4.0) 11.9 % (0.0-4.0) 10.4 % (0.0-4.0) Hemoglobin 12.3 GM/DL (13.0-17.0) Lymphocytes (%) (Auto) 8.7 % (9.0-44.0) Monocytes (%) (Auto) 8.8 % (0.0-8.0) Monocytes # (Auto) 1.1 TH/MM3 (0-0.9) Hospital Course Mr. Robb is an 81 -year-old male. He was admitted secondary to chest tightness and SVT. Myocardial infarction was discovered in patient's SVT is likely secondary to this. He has had a normalization of his heart rate now. The patient has been monitored and cardiology has cleared this patient for discharge today. Coreg and aspirin have been added to previous treatments and patient is medically stable and cleared for discharge home today. Pt Condition on Discharge: Stable Discharge Disposition: Discharge Home Discharge Time: <= 30 minutes Discharge Instructions DIET: Follow Instructions for: Heart Healthy Diet Activities you can perform: Regular-No Restrictions Follow up Referrals: Cardiology, Interventional PCP Follow-up New Medications: Aspirin (Tgt Aspirin) 81 Mg Chw 162 MG PO DAILY for Blood Clot Prevention, #30 EA Carvedilol (Coreg) 3.125 Mg Tab 3.125 MG PO BID for Blood Pressure Management, #60 TAB Continued Medications: Cyanocobalamin (Vitamin B-12) 500 Mcg Tab 500 MCG PO DAILY for Nutritional Supplement, #1 BOTTLE [address] (Esomeprazole DR) 40 Mg Capdr 40 MG PO DAILY, #30 CAP 0 Refills Glimepiride (Glimepiride) 4 Mg Tab 4 MG PO DAILY for Blood Sugar Management, #30 TAB 0 Refills Take with breakfast or first main meal Isosorbide Mononitrate ER (Isosorbide Mononitrate ER) 30 Mg Obie 30 MG PO DAILY for Prevent Chest Pain, #30 TAB 0 Refills Magnesium Oxide (Magnesium Oxide) 500 Mg Tab 500 MG PO DIRECTED, TAB 0 Refills Metformin (Metformin) 500 Mg Tab 500 MG PO TIDPC for Blood Sugar Management, #90 TAB 0 Refills Nitroglycerin SL (Nitroglycerin SL) 0.4 Mg Subl 0.4 MG SL DIRECTED PRN for CHEST PAIN, #100 TAB.SL 0 Refills ONE TABLET UNDER THE TONGUE NEEDED FOR CHEST PAIN, MAY REPEAT EVERY FIVE MINUTES FOR A TOTAL OF 3 DOSES OR CALL 911 IF NO RELIEF Olmesartan (Olmesartan) 40 Mg Tab 40 MG PO DAILY for Blood Pressure Management, #30 TAB 0 Refills Pantoprazole (Pantoprazole) 40 Mg Tab 40 MG PO DAILY for Reflux, #30 TAB 0 Refills Prasugrel (Effient) 10 Mg Tab 10 MG PO DAILY for Blood Clot Prevention, #30 TAB 0 Refills Pravastatin (Pravastatin) 40 Mg Tab 40 MG PO DAILY for Cholesterol Management, #30 TAB 0 Refills Ranolazine ER 12 HR (Ranexa ER 12 HR) 1,000 Mg Tab 1000 MG PO BID for Chest Pain, #60 TAB 0 Refills Saxagliptin (Onglyza) 5 Mg Tab 5 MG PO DAILY for Blood Sugar Management, #30 TAB 0 Refills Trazodone (Trazodone) 100 Mg Tablet 100 MG PO HS for Control Depression, #30 TAB 0 Refills Zinc Gluconate (Zinc Gluconate) 50 Mg Tab 50 MG PO DAILY, TAB [Iron 65MG] () 1 TAB PO DAILY Discontinued Medications: Metoprolol Succinate ER 24 HR (Metoprolol Succinate ER 24 HR) 50 Mg Tab 50 MG PO DAILY, #30 TAB 0 Refills Elder Ogden MD Apr 18, 2017 14:07
--- NOTE | 2017-04-18 14:25 | EKG ---
Date Performed: 04/17/2017 Time Performed: 21:02:10 PTAGE: 81 years EKG: Sinus tachycardia Left axis deviation Left bundle branch block Low QRS voltages in limb chang ds Abnormal ECG PREVIOUS TRACING : 04/17/2017 14.07 Since the prior tracing, the tachycardia has resolved as tamayo s the left axis deviation, but there is otherwise no significant serial change. DOCTOR: Orquidea Espinoza Interpretating Date/Time 04/18/2017 14:23:58
--- NOTE | 2017-04-18 14:25 | EKG ---
Date Performed: 04/18/2017 Time Performed: 02:36:17 PTAGE: 81 years EKG: Sinus rhythm WITH SINUS ARRHYTHMIA NORMAL ECG PREVIOUS TRACING : 04/17/2017 21.02 Since the prior tracing, there has been a resolution of the patient's left bundle branch block and the tracing is now within normal limits. DOCTOR: Orquidea Espinoza Interpretating Date/Time 04/18/2017 14:24:57
--- NOTE | 2017-04-18 14:25 | EKG ---
Date Performed: 04/17/2017 Time Performed: 14:07:12 PTAGE: 81 years EKG: Wide complex tachycardia of uncertain mechanism Left axis deviation Left bundle branch bloc k Abnormal ECG PREVIOUS TRACING : 04/17/2017 07.21 Since the prior tracing, there has been an increase in the ventricular rate, but no other significant serial change. DOCTOR: Orquidea Espinoza Interpretating Date/Time 04/18/2017 14:23:23
--- NOTE | 2017-04-18 14:27 | EKG ---
Date Performed: 04/18/2017 Time Performed: 08:06:48 PTAGE: 81 years EKG: Sinus rhythm with PVC(s) Left bundle branch block Low QRS voltages in limb leads Abnormal ECG PREVIOUS TRACING 04/18/17 Since the prior tracing, the patient has a recurrent left bundle bran ch block consistent with an intermittent left bundle branch block. Clinical correlation advised. DOCTOR: Orquidea Espinoza Interpretating Date/Time 04/18/2017 14:25:44
--- NOTE | 2017-04-20 07:19 | MA ---
cc: ALMA KELLER M.D. DATE: 04/17/2017 PROCEDURE: Left heart catheterization, left ventriculography, coronary angiography, assess vein angiography, STOVER angiography, aortic root angiography, bare metal stent placement to the distal left main coronary artery. INDICATIONS Non STEMI, cardiomyopathy, congestive heart failure, coronary artery disease, status post CABG, [place] [employer], class IV angina. DESCRIPTION OF PROCEDURE: The patient was brought to the Cardiac Catheterization Laboratory, prepped and draped in the usual sterile fashion. 10 cc of 1% lidocaine was used to locally anesthetize the right common femoral artery. A 4 Guyanese sheath was successfully placed in the right common femoral artery. 4 [place]yanese JR4 and JL4 catheters were used to perform left and right coronary angiography, left ventriculography, saphenous vein angiography, STOVER angiography and also pigtail catheter was used to perform aortic root angiography. FINDINGS: The LV pressure is 140/21-23, ejection fraction is 30%. The right coronary artery has a subtotal occlusion which is an In-stent stenosis of the ostial placed stent. There is a 95% proximal stenosis. The vessel is occluded in the [id number]-gl-bowzzk segment. There is significant dampening of the pressure waveform with a 4-Guyanese diagnostic catheter in the ostium vein graft. The right coronary artery is occluded at the ostium. The STOVER to the LAD is widely patent. The twenty-nine [place] LAD is a small vessel with a reference vessel diameter of maybe 1.5 to 1.75 mm in diameter. A long lesion about 20 mm distal to the graft, probably relative stenosis of 60 to 70%. There is left to right collaterals to the right PDA. There is retrograde filling at the LAD, filling a small diagonal vessel, reference vessel diameter of 2.0 mm in diameter with a proximal 50 to 60% stenosis. The vessel is occluded at a septal delivery professional vessel. The left main coronary artery has a distal 95% stenosis. The LAD is occluded at the ostial segment. The left circumflex vessel has mild to moderate diffuse disease in the proximal segment, 30 to 40% spanning three marginal vessels. The first marginal vessel is a small vessel 1 to 1.5 mm reference vessel diameter. No significant disease angiographically. The second obtuse marginal vessel is a very small vessel 0.25 mm reference vessel diameter. No significant disease angiographically. The third obtuse marginal vessel is a medium size vessel, reference vessel diameter 2-5 mm diameter with an ostial 60-70% stenosis. The fourth obtuse marginal vessel is a small vessel 0.5 mm reference vessel diameter ostial 30-40% lesion. Then there is a fifth obtuse marginal vessel which has a long 50-60% ostial proximal stenosis. The left circumflex vessel terminates into a small posterolateral artery probably 0.5 mm in diameter reference vessel diameter. DISCUSSION: It is somewhat indeterminate as to what is the culprit lesion. It could either be the left main or the LAD. The LAD is such a small reference vessel diameter at 1.5 mm. I do think that stenting would result in suboptimal results with oversizing on the stent, would not allow enough flow and/or high risk for stent thrombosis due to small stent with under deployment, not to mention it is a technically much more difficult procedure which would require a short STOVER guide catheter, given the long tortuous STOVER graft. Therefore, I thought that attempting PCI of the left main would be technically a more approachable lesion and there was not a significant amount of jeopardized myocardium given the five marginal vessels distal to the lesion. Therefore, a 6 Guyanese sheath was exchanged for the 4 Guyanese sheath, 70 liters per kilo of heparin was given, ACT 305, 6 Guyanese XP 3.5 guide 0.014 [place] guide wire and a 3-0 10 Euphora balloon was used to pre-dilate the lesion with one inflation 10 atmospheres for 20 seconds and then placed a 3-0 9 Integrity stent, deployed one inflation for 10 atmospheres for 20 seconds. The stenosis went from 95% to 0% with CHEN-3 flow. Initially the patient's chest pain persisted, but then within about five to ten minutes, the patient was completely chest pain free. I then proceeded to do an aortic root shot which revealed a Y-graft which was high lateral. I was not able to selectively engage it with a JR-4, or AL-1. As the patient was completely pain free and it appeared to the suboptimal imaging that the graft was probably occluded distally, and I did not see any competitive flow in the marginal vessels and this again was a very high graft in the aorta suggesting the marginal vessel that this vessel is probably occluded in the [id number] segment in both arms of the Y-graft. The proximal graft also appeared to be diffusely diseased up to at least 40 to 50% and then the more superior Y-graft appeared to have a long 95% stenosis and then there was a stent there that appeared to be occluded. The more inferior arm of the Y-graft again appeared to have severe diffuse disease with occlusion beyond possibly a stent placed in that arm of the Y-graft as well. CONCLUSIONS: 1. Non STEMI. Culprit 95% distal left main, that makes one of four grafts patent, as detailed above. 2. Cardiomyopathy of 30%, global hypokinesis. 3. Severe three vessel disease. 4. Elevated LV pressures 140/21/23. 5. Successful PCI bare metal stent of the distal left main from 95% to 0% CHEN-3 flow. NOTE: The patient is completely chest pain free post PCI. Final ACT 309. RECOMMENDATIONS: Recommend Aggrastat drip per protocol, Plavix 600 milligrams p.o. load and then 75 milligrams a day for 12 to 15 months, aspirin 162 milligrams daily. Will treat lipids per NCP guidelines. I will need to review the patient's labs in detail to determine his eligibility for beta paty, ANISHA inhibitor. MD JASON Hollingsworth/CORINE /1:18 PM /6:34 AM
== END 2017-04-18 13:30 | disposition home or self-care (01) | DRG 249 ==
LOC: NEPE 07:11 → NEDA 08:44 → HCIS 16:31
PROVIDERS: ADMIT Hospitalist; ATTEND Hospitalist
PROC: 02703DZ Dilation of Coronary Artery, One Artery with Intraluminal Device, Percutaneous Approach (ICD-10-PCS; 2017-04-17)
PROC: B2151ZZ Fluoroscopy of Left Heart using Low Osmolar Contrast (ICD-10-PCS; 2017-04-17)
PROC: B2111ZZ Fluoroscopy of Multiple Coronary Arteries using Low Osmolar Contrast (ICD-10-PCS; 2017-04-17)
PROC: B31P1ZZ Fluoroscopy of Thoraco-Abdominal Aorta using Low Osmolar Contrast (ICD-10-PCS; 2017-04-17)
PROC: B41G1ZZ Fluoroscopy of Left Lower Extremity Arteries using Low Osmolar Contrast (ICD-10-PCS; 2017-04-17)
PROC: B41F1ZZ Fluoroscopy of Right Lower Extremity Arteries using Low Osmolar Contrast (ICD-10-PCS; 2017-04-17)
PROC: B2181ZZ Fluoroscopy of Left Internal Mammary Bypass Graft using Low Osmolar Contrast (ICD-10-PCS; 2017-04-17)
PROC: 4A023N7 Measurement of Cardiac Sampling and Pressure, Left Heart, Percutaneous Approach (ICD-10-PCS; principal; 2017-04-17 12:15)
DX: I21.4 Non-ST elevation (NSTEMI) myocardial infarction (principal); I42.9 Cardiomyopathy, unspecified; I11.0 Hypertensive heart disease with heart failure; I50.9 Heart failure, unspecified; T82.858A Stenosis of other vascular prosthetic devices, implants and grafts, initial encounter; I47.1 Supraventricular tachycardia; E87.1 Hypo-osmolality and hyponatremia; I25.10 Atherosclerotic heart disease of native coronary artery without angina pectoris; Z95.1 Presence of aortocoronary bypass graft; E78.5 Hyperlipidemia, unspecified; F17.290 Nicotine dependence, other tobacco product, uncomplicated; E11.65 Type 2 diabetes mellitus with hyperglycemia; Z79.84 Long term (current) use of oral hypoglycemic drugs; I44.7 Left bundle-branch block, unspecified; E87.5 Hyperkalemia
CPT/HCPCS: 71045; 80048; 80061; 80076; 82550; 82552; 82948; 83690; 83880; 84484; 85002; 85025; 85610; 85730; 92928; 93005; 93306; 93458; 93567; 96374; 96375; 99152; C1725; C1769; C1876; C1887; C1893; J1644; J1815; J2250; J3010; J3246; Q9967

== ENCOUNTER 2017-04-22 00:15 | Emergency (ER) | payer MEDICARE, OTHER ==
[~2017-04-22 00:15] MED LIST: ASPI81 PO; CARV3.125 PO; ESOM1CAP16 PO; GLIM4TAB PO; IRON 65MG PO; ISOS30TA3 PO; MAGN500T2 PO; METF500T PO; NITR1SUB3 SL; OLME1TAB13 PO; ONGL5TAB PO; PANT40TA3 PO; PRAS10TA PO; PRAV40TA2 PO; RANE1000 PO; TRAZ100T10 PO; VITA500T4 PO; ZINC50TA2 PO
--- NOTE | 2017-04-22 00:50 | PD ---
HPI Chief Complaint: Code Blue Time Seen by Provider: 00:30 Travel History International Travel<30 days: No Contact w/Intl Traveler<30days: No Traveled to known affect area: No History of Present Illness HPI The patient is an 81-year-old male that apparently arrested at home. The ambulance was called and it was approximately 10 minutes between the time that he collapsed and the time that ACLS was started. The ambulance personnel found asystole as his initial rhythm and the only rhythm but he was recorded as having. The ambulance personnel did CPR/ACLS protocol for approximately 25 minutes prior to arrival to the emergency department. The patient experienced shortness of breath prior to suddenly arresting at home. PFSH Past Medical History Hx Anticoagulant Therapy: Yes (EFFIANT) Anemia: Yes Cardiac Catheterization: Yes Cardiovascular Problems: Yes (CABG AND STENTS ) High Cholesterol: Yes Chest Pain: Yes Coronary Artery Disease: Yes Diabetes: Yes GERD: Yes Hypertension: Yes Past Surgical History Coronary Artery Bypass Graft: Yes Social History Alcohol Use: Yes (WEEKLY) Tobacco Use: Yes Substance Use: No Allergies-Medications (Allergen,Severity, Reaction): Coded Allergies: No Known Allergies (Unverified , 04/17/17) Reported Meds & Prescriptions Reported Meds & Active Scripts Active Coreg (Carvedilol) 3.125 Mg Tab 3.125 Mg PO BID Tgt Aspirin (Aspirin) 81 Mg Chw 162 Mg PO DAILY Reported Nitroglycerin SL (Nitroglycerin) 0.4 Mg Subl 0.4 Mg SL DIRECTED PRN ONE TABLET UNDER THE TONGUE NEEDED FOR CHEST PAIN, MAY REPEAT EVERY FIVE MINUTES FOR A TOTAL OF 3 DOSES OR CALL 911 IF NO RELIEF Glimepiride 4 Mg Tab 4 Mg PO DAILY Take with breakfast or first main meal Effient (Prasugrel) 10 Mg Tab 10 Mg PO DAILY Ranexa ER 12 HR (Ranolazine) 1,000 Mg Tab 1,000 Mg PO BID Vitamin B-12 (Cyanocobalamin) 500 Mcg Tab 500 Mcg PO DAILY [Iron 65MG] 1 Tab PO DAILY Esomeprazole DR 40 Mg Capdr 40 Mg PO DAILY Pravastatin 40 Mg Tab 40 Mg PO DAILY Pantoprazole (Pantoprazole Sodium) 40 Mg Tab 40 Mg PO DAILY Olmesartan 40 Mg Tab 40 Mg PO DAILY Isosorbide Mononitrate ER (Isosorbide Mononitrate) 30 Mg Obie 30 Mg PO DAILY Metformin (Metformin HCl) 500 Mg Tab 500 Mg PO TIDPC Trazodone (Trazodone HCl) 100 Mg Tablet 100 Mg PO HS Onglyza (Saxagliptin) 5 Mg Tab 5 Mg PO DAILY Zinc Gluconate 50 Mg Tab 50 Mg PO DAILY Magnesium Oxide 500 Mg Tab 500 Mg PO DIRECTED Review of Systems ROS Limitations: Unresponsive Physical Exam Narrative The patient is comatose with no respiratory effort. His pupils are fixed and dilated. Compressions are being done and the patient has good pulses with the compressions. He has no spontaneous pulse. Data Data Orders Orders Ed Discharge Order (04/22/17 02:13) MDM Medical Decision Making Medical Screen Exam Complete: Yes Emergency Medical Condition: Yes Medical Record Reviewed: Yes Differential Diagnosis Cardiopulmonary arrest: from myocardial infarction, from pericardial effusion- highly unlikely, from pulmonary edema/hypoxemia Narrative Course The patient had a full cardiopulmonary arrest at home. He was found in asystole by a back personnel and the downtime from the time he rested to the time ACLS protocol from [facility] personnel was about 10 minutes. He did receive some CPR at home. After over 25 minutes in the field and 15 minutes here in the emergency department of ACLS protocol and ultrasound showed absolutely no movement of the heart. At that time the attempts were terminated. Diagnosis Primary Impression: Sudden cardiac Additional Instructions: Dr. Montemayor is being notified about the patient. Disposition: 20 Condition: Wali Monroe MD Apr 22, 2017 00:50
== END 2017-04-22 02:04 | disposition expired ==
LOC: PHED 00:15
DX: I46.9 Cardiac arrest, cause unspecified (principal); I25.10 Atherosclerotic heart disease of native coronary artery without angina pectoris; I10 Essential (primary) hypertension; E78.00 Pure hypercholesterolemia, unspecified; E11.9 Type 2 diabetes mellitus without complications; K21.9 Gastro-esophageal reflux disease without esophagitis; D64.9 Anemia, unspecified; Z79.01 Long term (current) use of anticoagulants; Z95.5 Presence of coronary angioplasty implant and graft; Z95.1 Presence of aortocoronary bypass graft; Z72.0 Tobacco use; Z79.84 Long term (current) use of oral hypoglycemic drugs
CPT/HCPCS: 92950